=== PATIENT | female | born 1980 | race Two or more races ===

== ENCOUNTER 2018-02-02 08:49 | Outpatient (CLI) | payer OTHER ==
[~2018-02-02 08:49] MED LIST: INDERAL LA80 MG
== END 2018-02-02 10:49 | disposition home or self-care (01) ==
LOC: MRI 08:49
DX: M23.232 Derangement of other medial meniscus due to old tear or injury, left knee (principal); M23.672 Other spontaneous disruption of capsular ligament of left knee
CPT/HCPCS: 73721

== ENCOUNTER 2018-06-24 22:35 | Emergency (ER) | payer OTHER ==
[~2018-06-24] VITALS: Ht 165.1 cm; Wt 63.5 kg
[2018-06-25] MEDS ORDERED: TOPROL XL50 M1 PO (05:00)
== END 2018-06-25 04:58 | disposition home or self-care (01) ==
LOC: ER 22:35
DX: I10 Essential (primary) hypertension (principal); F06.4 Anxiety disorder due to known physiological condition

== ENCOUNTER 2018-07-02 14:17 | Emergency (ER) | payer OTHER ==
[~2018-07-02] VITALS: Ht 165.1 cm; Wt 48.1 kg
[~2018-07-02 14:17] MED LIST changes: +TOPROL XL50 M1 PO
== END 2018-07-02 18:00 | disposition home or self-care (01) ==
LOC: ER 14:17
DX: I10 Essential (primary) hypertension (principal); F06.4 Anxiety disorder due to known physiological condition

== ENCOUNTER 2018-07-12 09:04 | Emergency (ER) | payer OTHER ==
[~2018-07-12] VITALS: Ht 165.1 cm; Wt 45.4 kg
[2018-07-12] MEDS ORDERED: HYDROCHLOROTHIA25 MG (09:19)
== END 2018-07-12 11:30 | disposition home or self-care (01) ==
LOC: ER 09:04
DX: R07.89 Other chest pain (principal)

== ENCOUNTER → 2020-08-31 | Outpatient (CLI) | payer OTHER ==
[~2020-08-31] MED LIST changes: +HYDROCHLOROTHIA25 MG
== END | disposition home or self-care (01) ==
LOC: MAMO-SONO 10:45
DX: N60.01 Solitary cyst of right breast (principal); N60.02 Solitary cyst of left breast

== ENCOUNTER 2020-09-25 13:32 | Outpatient (CLI) | payer OTHER | END 2020-09-25 13:40 | disposition home or self-care (01) | LOC: MAMO-SONO 13:32 | DX: N60.02 Solitary cyst of left breast (principal); N64.59 Other signs and symptoms in breast ==